=== PATIENT | male | born 1965 | race Caucasian/White ===

== ENCOUNTER 2017-12-01 08:53 | Emergency (ER) | payer MEDICARE, MEDICAID ==
[~2017-12-01] VITALS: Ht 180.3 cm; Wt 94.0 kg
[~2017-12-01 08:53] MED LIST: METF500T PO
[2017-12-01 08:58] VITALS: BP 124/94
[2017-12-01] MEDS ORDERED: LIDOcaine 1.5% w/epinephrine 1:200,000 5ml ampul IJ ONE (09:40)
[2017-12-01] MEDS ORDERED: acetaminophen w/codeine (30MG) #3 tablet PO ONE (09:40)
[2017-12-01] MEDS ORDERED: CODE15TA PO (09:49)
[2017-12-01] MEDS ORDERED: PENI250T2 PO (09:49)
== END 2017-12-01 10:51 | disposition home or self-care (01) ==
LOC: ER 08:54
DX: K05.212 Aggressive periodontitis, localized, moderate (principal); K02.9 Dental caries, unspecified; E11.9 Type 2 diabetes mellitus without complications; F12.90 Cannabis use, unspecified, uncomplicated; Z98.890 Other specified postprocedural states; Z79.84 Long term (current) use of oral hypoglycemic drugs; Z79.899 Other long term (current) drug therapy
CPT/HCPCS: 41800; 99283; A6449; J3490

== ENCOUNTER 2021-02-08 16:12 | Emergency (ER) | payer MEDICARE, MEDICAID ==
[~2021-02-08] VITALS: Ht 177.8 cm; Wt 81.3 kg
[~2021-02-08 16:12] MED LIST changes: +CODE15TA PO
[2021-02-08 17:04] VITALS: BP 128/92
[2021-02-08 17:27] LABS: BASOPHILS % (AUTO) 0.4 % (0-1); EOSINOPHILS % (AUTO) 0.1 % (0-6); LYMPHOCYTES % (AUTO) 19.2 % (21-51); MEAN CORPUSCULAR HEMOGLOBIN 31.5 PG (27.0-31.0); MEAN CORPUSCULAR HGB CONC 33.8 g/dL (33.0-36.5); MEAN CORPUSCULAR VOLUME 93.1 FL (78-98); MEAN PLATELET VOLUME 10.1 FL (7.4-10.4); MONOCYTES % (AUTO) 9.7 % (2-12); NEUTROPHILS # (AUTO) 7.3 X10'3 (1.8-7.7); NEUTROPHILS % (AUTO) 70.6 % (42-75); PLATELET COUNT 225 X10'3 (140-440); RED CELL DISTRIBUTION WIDTH 12.9 % (11.5-14.5); WHITE BLOOD COUNT 10.4 X10'3 (4.5-11.0)
[2021-02-08 17:44] LABS: HEMOGLOBIN 18.3 g/dl (14.0-17.9)
[2021-02-08 17:55] LABS: ALANINE AMINOTRANSFERASE 75 U/L (12-78); ALBUMIN 3.9 G/DL (3.4-5.0); ALKALINE PHOSPHATASE 124 IU/L (46-116); ANION GAP 18 (8-16); ASPARTATE AMINO TRANSFERASE 33 U/L (10-37); BILIRUBIN,TOTAL 0.3 MG/DL (0.1-1.0); BLOOD UREA NITROGEN 28 MG/DL (7-18); BUN/CREATININE RATIO 20.9 (5.4-32.0); CALCIUM 8.1 MG/DL (8.5-10.1); CHLORIDE 97 MMOL/L (99-107); CREATININE 1.34 MG/DL (0.60-1.10); GLUCOSE 253 MG/DL (70-104); LIPASE 113 U/L (73-393); MAGNESIUM 2.1 MG/DL (1.5-2.4); POTASSIUM 4.3 MMOL/L (3.5-5.1); SODIUM 131 MMOL/L (135-145); TOTAL CARBON DIOXIDE 16.4 MMOL/L (24-32); eGFR 55 ML/MIN
[2021-02-08] MEDS ORDERED: LORazepam 2 mg/ml vial IV ONE (21:35)
[2021-02-08] MEDS ORDERED: normal saline 1000ML IV soln IVB ONE (21:35)
[2021-02-09 00:12] LABS: CLARITY,URINE CLEAR (Clear); COLOR,URINE YELLOW (Yellow); GLUCOSE, URINE 100 mg/dl (Neg); KETONES,URINE 40 mg/dl (Neg); LEUKOCYTE ESTERASE ,URINE NEGATIVE (Neg); NITRITES, URINE NEGATIVE (Neg); OCCULT BLOOD,URINE TRACE-INTACT (Neg); PH,URINE 5.5 (4.8-8.0); PROTEIN,URINE 100 mg/dl (Neg); UROBILINOGEN,URINE 0.2 E.U/dL (0.2-1.0)
[2021-02-09 00:13] LABS: UA COLLECTION TYPE NON-SPECIFIED
[2021-02-09 00:20] LABS: BACTERIA,URINE NONE SEEN /HPF (Neg); RBC,URINE NONE SEEN /HPF (0-2); SQUAMOUS EPITHELIAL CELL,UR NONE SEEN /LPF (FEW); WBC,URINE NONE SEEN /HPF (0-4)
[2021-02-09] MEDS ORDERED: NO HOME MEDS (00:51)
== END 2021-02-09 00:52 | disposition home or self-care (01) ==
LOC: ER 16:12
DX: E11.65 Type 2 diabetes mellitus with hyperglycemia (principal); F41.9 Anxiety disorder, unspecified; R10.30 Lower abdominal pain, unspecified; R42 Dizziness and giddiness; F12.90 Cannabis use, unspecified, uncomplicated; Z98.890 Other specified postprocedural states; Z79.899 Other long term (current) drug therapy
CPT/HCPCS: 36415; 80053; 81001; 82948; 83690; 83735; 85025; 96361; 96374; 99284; J2060; J7030; 81003; 99283

== ENCOUNTER 2022-09-28 10:07 | Emergency (ER) | payer MEDICARE, MEDICAID ==
[~2022-09-28] VITALS: Ht 180.3 cm; Wt 87.3 kg
[~2022-09-28 10:07] MED LIST changes: +NO HOME MEDS
[2022-09-28] MEDS ORDERED: HYDROcodone/acetaminophen 5mg/325mg tablet PO ONE (12:05)
--- NOTE | 2022-09-28 12:30 | NUR ---
Questioned pt re: Pneumoccocal vaccine of 11/30/2011 and Tdap of 04/25/2018, but pt is unaware of his vaccine record. Encouraged pt to check this at a later time, and bring records in to update these as per request.
[2022-09-28] MEDS ORDERED: HYDROcodone/acetaminophen 10/325mg tab PO ONE (13:20)
[2022-09-28] MEDS ORDERED: naproxen 500mg tablet PO ONE (13:20)
--- NOTE | 2022-09-28 13:32 | NUR ---
Anne adorno in [facility] - 09/28/22 at 1409 by [facility] Hgb: 6.7/ Hct 22.6
--- NOTE | 2022-09-28 14:07 | NUR ---
Pt to MRI at this time; C collar applied prior to scan per MRI request; Pt tolerating well
[2022-09-28] MEDS ORDERED: HYDR-3965 PO ×2 (14:24)
--- NOTE | 2022-09-28 16:26 | NUR ---
T/C to pt's to let her know new possible plan that pt may be transported over to [facility] for neurosurgical f/u. Attempted to help pt call his from room, however, the telephone jacks in his room are not working. Pt made 1 phone call to spouse from nurses desk, but let him know to call her when he gets transferred over to [facility], per her request. Awaiting official decision if the transport will be occurring.
--- NOTE | 2022-09-28 16:42 | NUR ---
Had conversation w/ pt to determine his feelings regarding the possible plan of going to [facility]. He states he feels fine either way. His concern is that the caregiver for his went home, and he is also concerned that he have a ride home from [facility] if that is what happens. Let him know that I would try to keep him as informed as possible, and encouraged him to give his spouse a call prior to leaving, perhaps from the front, as the jacks in his room are not working.
[2022-09-28] MEDS ORDERED: dexamethasone 4mg tablet PO ONE (17:05)
[2022-09-28] MEDS ORDERED: gabapentin 300mg capsule PO ONE (17:05)
[2022-09-28] MEDS ORDERED: gabapentin 300mg capsule PO SCH (17:05)
[2022-09-28] MEDS ORDERED: GABA-534 PO (17:06)
[2022-09-28] MEDS ORDERED: CYCL-1 PO (17:06)
[2022-09-28] MEDS ORDERED: DEC4T PO (17:06)
[2022-09-28] MEDS ORDERED: cyclobenzaprine 10mg tablet PO ONE (17:15)
[2022-09-28 17:19] VITALS: BP 140/87
[2022-09-28] MEDS ORDERED: MORP15TA PO (19:36)
== END 2022-09-28 17:24 | disposition home or self-care (01) ==
LOC: ER 10:07
DX: G89.29 Other chronic pain (principal); M54.2 Cervicalgia; W19.XXXA Unspecified fall, initial encounter; Y93.89 Activity, other specified; Y92.89 Other specified places as the place of occurrence of the external cause; Y99.8 Other external cause status
CPT/HCPCS: 70450; 71250; 72125; 72141; 74176; 99284

== ENCOUNTER 2022-10-01 13:40 | Emergency (ER) | payer MEDICARE, MEDICAID ==
[~2022-10-01] VITALS: Ht 180.3 cm; Wt 88.6 kg
[~2022-10-01 13:40] MED LIST changes: +CYCL-1 PO; +DEC4T PO; +GABA-534 PO; +MORP15TA PO
[2022-10-01 13:45] VITALS: BP 114/80
[2022-10-01] MEDS ORDERED: OXYC-150 PO (15:11)
== END 2022-10-01 15:30 | disposition home or self-care (01) ==
LOC: ER 13:41
DX: R07.89 Other chest pain (principal); E11.9 Type 2 diabetes mellitus without complications; G89.29 Other chronic pain; F12.10 Cannabis abuse, uncomplicated; Z79.899 Other long term (current) drug therapy; Z79.1 Long term (current) use of non-steroidal anti-inflammatories (NSAID); W19.XXXA Unspecified fall, initial encounter; Y93.89 Activity, other specified; Y92.89 Other specified places as the place of occurrence of the external cause; Y99.8 Other external cause status
CPT/HCPCS: 99284

== ENCOUNTER 2025-02-06 10:44 | Outpatient (CLI) | payer MEDICARE, MEDICAID ==
[~2025-02-06 10:44] MED LIST changes: -DEC4T PO; -GABA-534 PO; +GABA-535 PO; -MORP15TA PO; +OXYC-150 PO
--- NOTE | 2025-02-06 12:18 | RADIOLOGY REPORT ---
Exam: US US NON VASCULAR Clinical History: SCALP MASS Comparison: None Technique: Targeted sonographic evaluation of the soft tissues of the scalp mass was obtained utilizing graysca le and color Doppler imaging. Findings/Impression: Indeterminate hypoechoic nodule in the superficial subcutaneous soft-tissue measures 0.8 cm. Adjacent similar-appearing hypoechoic structure in the superficial soft-tissue measuring 0.1 cm. These may represent sebaceous cysts or lipomas. Clinical correlation advised.
== END 2025-02-06 23:59 | disposition home or self-care (01) ==
LOC: RAD 10:44
PROVIDERS: ATTEND Student in an Organized Health Care Education/Training Program
DX: R22.0 Localized swelling, mass and lump, head (principal)
CPT/HCPCS: 76882